=== PATIENT | female | born 1970 | race African-American/Black ===

== ENCOUNTER 2017-03-19 19:36 | Emergency (ER) | payer OTHER ==
[~2017-03-19] VITALS: Ht 157.5 cm; Wt 84.2 kg
[~2017-03-19 19:36] MED LIST: BACTRIM DS1 TAB PO; CEPHALEXIN500 MG PO; DOXYCYCL HYC100 M4 PO; FLEXERIL PO; FLONASE NASAL50 MCG; LORTAB 10 PO; LORTAB 5/3255 MG PO; MEDDOSEPAK PO; METHOCARBAMOL500 MG PO; MOTRIN800 MG/TAB PO; NAPROSYN500 MG PO; NORCO1 TA1 PO; PROVENTIL HFA IN; ROBITUSSIN AC10 ML PO; ULTRAM50 M1 PO; ZPAK PO
[2017-03-19] MEDS ORDERED: MOTRIN200 MG PO (19:59)
[2017-03-19] MEDS ORDERED: ANTIHYPERTENSIVE (20:00)
[2017-03-19] MEDS ORDERED: LOSARTAN POT25 MG PO (20:09)
[2017-03-19] MEDS ORDERED: ATORVASTATIN CA20 MG PO (20:10)
[2017-03-19 20:25] LABS: HEMATOCRIT 36.6 % (37.0-47.0); HEMOGLOBIN 11.7 g/dl (12.0-16.0); IMMATURE GRANULOCYTES 0.3 % (0.0-1.0); MEAN CELL VOLUME 80.8 fL CALC (80.0-100.0); MEAN CORPUSCULAR HGB 25.8 pG CALC (26.0-32.0); NEUT# 5.56 thou/uL (2.00-7.15); RED BLOOD COUNT 4.53 mill/uL (4.20-5.60); RED CELL DISTRI WIDTH 18.6 % (11.5-15.5)
[2017-03-19 20:47] LABS: ALBUMIN 4.2 g/dL (3.2-5.0); ALKALINE PHOSPHATASE 62 u/l (38-126); AMYLASE 55 u/l (30-110); ANION GAP 17 (6-22 (CALC)); BILIRUBIN, TOTAL 0.4 mg/dL (0.0-1.4); BUN 6 mg/dL (7-17); BUN/CREATININE RATIO 9 (12-20 (CALC)); CALCIUM 9.4 mg/dL (8.4-10.2); CARBON DIOXIDE 24 mmol/l (22-30); CHLORIDE 106 mmol/l (95-108); CREATININE 0.7 mg/dL (0.5-1.0); GFR > 60 ML/MIN (>=60 (CALC)); GFR FOR AFR.AMER. > 60 ML/MIN (>=60 (CALC)); GLUCOSE 103 mg/dL (65-105); LIPASE 67 u/l (23-300); POTASSIUM 3.9 mmol/l (3.5-5.1); SGOT/AST 21 u/l (14-36); SGPT/ALT 40 u/l (9-52); SODIUM 143 mmol/l (137-146); TOTAL PROTEIN 7.3 g/dL (6.3-8.2)
[2017-03-19] MEDS ORDERED: AMOXICILLIN500 MG PO (21:05)
[2017-03-19] MEDS ORDERED: LORTAB 10-325 M1 TAB PO (21:05)
[2017-03-19] MEDS ORDERED: ZOFRAN ODT4 MG PO (21:05)
[2017-03-19 21:15] VITALS: BP 129/74
== END 2017-03-19 21:15 | disposition home or self-care (01) | DRG 159 ==
LOC: ED 19:36
PROVIDERS: Emergency Medicine
DX: K08.89 Other specified disorders of teeth and supporting structures (principal); F17.210 Nicotine dependence, cigarettes, uncomplicated; R11.10 Vomiting, unspecified; R50.9 Fever, unspecified; R10.13 Epigastric pain

== ENCOUNTER 2017-07-27 08:22 | Emergency (ER) | payer OTHER ==
[~2017-07-27] VITALS: Ht 157.5 cm; Wt 80.0 kg
[~2017-07-27 08:22] MED LIST changes: +AMOXICILLIN500 MG PO; +ANTIHYPERTENSIVE; +ATORVASTATIN CA20 MG PO; +LORTAB 10-325 M1 TAB PO; +LOSARTAN POT25 MG PO; +MOTRIN200 MG PO; +ZOFRAN ODT4 MG PO
[2017-07-27 09:48] LABS: URINE BILIRUBIN - DIPSTICK NEGATIVE (NEGATIVE); URINE BLOOD DIPSTICK NEGATIVE (NEGATIVE); URINE CLARITY CLEAR; URINE GLUCOSE - DIPSTICK NEGATIVE (NEGATIVE); URINE KETONE TRACE mg/dL (NEGATIVE); URINE LEUK ESTERASE TRACE (NEGATIVE); URINE NITRITE - DIPSTICK NEGATIVE (Negative); URINE PROTEIN - DIPSTICK NEGATIVE (NEG-TRACE); URINE SPECIFIC GRAVITY 1.025; URINE UROBILINOGEN - DIPSTICK 0.2 E.U./dL (0.2)
[2017-07-27 09:49] LABS: HEMATOCRIT 38.1 % (37.0-47.0); HEMOGLOBIN 12.2 g/dl (12.0-16.0); IMMATURE GRANULOCYTES 0.3 % (0.0-1.0); MEAN CELL VOLUME 79.9 fL CALC (80.0-100.0); MEAN CORPUSCULAR HGB 25.6 pG CALC (26.0-32.0); NEUT# 4.82 thou/uL (2.00-7.15); RED BLOOD COUNT 4.77 mill/uL (4.20-5.60); RED CELL DISTRI WIDTH 18.7 % (11.5-15.5)
[2017-07-27 09:50] LABS: URINE COLOR DK. YELLOW
[2017-07-27 09:56] LABS: ALBUMIN 3.9 g/dL (3.2-5.0); ALKALINE PHOSPHATASE 64 u/l (38-126); AMYLASE 58 u/l (30-110); ANION GAP 14 (6-22 (CALC)); BILIRUBIN, TOTAL 0.4 mg/dL (0.0-1.4); BUN 5 mg/dL (7-17); BUN/CREATININE RATIO 8 (12-20 (CALC)); CALCIUM 9.3 mg/dL (8.4-10.2); CARBON DIOXIDE 22 mmol/l (22-30); CHLORIDE 110 mmol/l (95-108); CREATININE 0.6 mg/dL (0.5-1.0); GFR > 60 ML/MIN (>=60 (CALC)); GFR FOR AFR.AMER. > 60 ML/MIN (>=60 (CALC)); GLUCOSE 98 mg/dL (65-105); LIPASE 62 u/l (23-300); POTASSIUM 3.9 mmol/l (3.5-5.1); SGOT/AST 15 u/l (14-36); SGPT/ALT 27 u/l (9-52); SODIUM 142 mmol/l (137-146); TOTAL PROTEIN 7.1 g/dL (6.3-8.2)
[2017-07-27] MEDS ORDERED: ZOFRAN4 M1 PO (11:58)
[2017-07-27 12:07] VITALS: BP 130/92
== END 2017-07-27 12:17 | disposition home or self-care (01) | DRG 392 ==
LOC: ED 08:22
PROVIDERS: Family Medicine
DX: R10.13 Epigastric pain (principal); R11.10 Vomiting, unspecified; F17.210 Nicotine dependence, cigarettes, uncomplicated

== ENCOUNTER 2017-09-11 20:44 | Emergency (ER) | payer OTHER ==
[~2017-09-11] VITALS: Ht 157.5 cm; Wt 83.2 kg
[~2017-09-11 20:44] MED LIST changes: +ZOFRAN4 M1 PO
[2017-09-11 21:47] LABS: HEMATOCRIT 37.5 % (37.0-47.0); HEMOGLOBIN 12.2 g/dl (12.0-16.0); IMMATURE GRANULOCYTES 0.6 % (0.0-1.0); MEAN CELL VOLUME 79.6 fL CALC (80.0-100.0); MEAN CORPUSCULAR HGB 25.9 pG CALC (26.0-32.0); MEAN CORPUSCULAR HGB CONC 32.5 g/L CALC (32.0-36.0); NEUT# 5.89 thou/uL (2.00-7.15); RED BLOOD COUNT 4.71 mill/uL (4.20-5.60); RED CELL DISTRI WIDTH 19.2 % (11.5-15.5)
[2017-09-11 22:02] LABS: ALKALINE PHOSPHATASE 60 u/l (38-126); ANION GAP 17 (6-22 (CALC)); BILIRUBIN, TOTAL 0.3 mg/dL (0.0-1.4); BUN 7 mg/dL (7-17); BUN/CREATININE RATIO 10 (12-20 (CALC)); CALCIUM 9.2 mg/dL (8.4-10.2); CARBON DIOXIDE 20 mmol/l (22-30); CHLORIDE 110 mmol/l (95-108); CREATININE 0.7 mg/dL (0.5-1.0); GFR > 60 ML/MIN (>=60 (CALC)); GFR FOR AFR.AMER. > 60 ML/MIN (>=60 (CALC)); GLUCOSE 110 mg/dL (65-105); POTASSIUM 3.9 mmol/l (3.5-5.1); SGOT/AST 15 u/l (14-36); SGPT/ALT 33 u/l (9-52); SODIUM 143 mmol/l (137-146); TOTAL PROTEIN 7.1 g/dL (6.3-8.2)
[2017-09-11 23:49] VITALS: BP 138/76
== END 2017-09-11 23:50 | disposition home or self-care (01) | DRG 103 ==
LOC: ED 20:44
PROVIDERS: Emergency Medicine
DX: R51 Headache (principal)

== ENCOUNTER 2017-11-09 04:31 | Emergency (ER) | payer OTHER ==
[~2017-11-09] VITALS: Ht 157.5 cm; Wt 78.8 kg
[2017-11-09] MEDS ORDERED: PROVENTIL (04:56)
[2017-11-09 05:50] LABS: INFLUENZA A NONE DETECTED (NONE DETECT); INFLUENZA B NONE DETECTED (NONE DETECT)
--- NOTE | 2017-11-09 05:51 | NUR ---
BREATHING TREATMENT GIVEN. BREATHING TECH. FOR GOOD DEPOSITION TO THE LUNGS.
[2017-11-09] MEDS ORDERED: KEFLEX500 M1 PO (05:58)
[2017-11-09] MEDS ORDERED: ROBITUSSIN AC10 ML PO (05:58)
[2017-11-09 06:05] VITALS: BP 135/76
== END 2017-11-09 06:08 | disposition home or self-care (01) | DRG 153 ==
LOC: ED 04:31
PROVIDERS: Emergency Medicine
DX: J06.9 Acute upper respiratory infection, unspecified (principal); I10 Essential (primary) hypertension; F17.210 Nicotine dependence, cigarettes, uncomplicated; R05 Cough; R50.9 Fever, unspecified

== ENCOUNTER 2018-09-11 04:32 | Emergency (ER) | payer OTHER ==
[~2018-09-11] VITALS: Ht 157.5 cm; Wt 79.0 kg
[~2018-09-11 04:32] MED LIST changes: +KEFLEX500 M1 PO; +PROVENTIL
[2018-09-11 05:15] LABS: HEMATOCRIT 42.5 % (37.0-47.0); HEMOGLOBIN 14.1 g/dl (12.0-16.0); IMMATURE GRANULOCYTES 0.6 % (0.0-5.0); MEAN CELL VOLUME 80.5 fL CALC (80.0-100.0); MEAN CORPUSCULAR HGB 26.7 pG CALC (26.0-32.0); MEAN CORPUSCULAR HGB CONC 33.2 g/L CALC (32.0-36.0); NEUT# 5.3 thou/uL (2.00-7.15); RED BLOOD COUNT 5.28 mill/uL (4.20-5.60); RED CELL DISTRI WIDTH 17.4 % (11.5-15.5)
--- NOTE | 2018-09-11 05:20 | NUR ---
BREATHING TREATMENT GIVEN USING A MOUTH PEICE. BREATHING TECH. FOR GOOD DEPOSITION TO THE LUNGS.
[2018-09-11] MEDS ORDERED: TESSALON PER100 MG PO (06:06)
[2018-09-11 06:21] VITALS: BP 120/66
== END 2018-09-11 06:28 | disposition home or self-care (01) ==
LOC: ED 04:32
PROVIDERS: Family Medicine
DX: J06.9 Acute upper respiratory infection, unspecified (principal); J40 Bronchitis, not specified as acute or chronic; F17.200 Nicotine dependence, unspecified, uncomplicated; R05 Cough; R11.10 Vomiting, unspecified; R09.81 Nasal congestion

== ENCOUNTER 2019-09-28 06:14 | Emergency (ER) | payer SELFPAY ==
[~2019-09-28] VITALS: Ht 157.5 cm; Wt 75.4 kg
[~2019-09-28 06:14] MED LIST changes: +TESSALON PER100 MG PO
[2019-09-28 07:35] LABS: HEMATOCRIT 37.2 % (37.0-47.0); HEMOGLOBIN 12.3 g/dl (12.0-16.0); IMMATURE GRANULOCYTES 0.7 % (0.0-5.0); MEAN CELL VOLUME 85.3 fL CALC (80.0-100.0); MEAN CORPUSCULAR HGB 28.2 pG CALC (26.0-32.0); MEAN CORPUSCULAR HGB CONC 33.1 g/L CALC (32.0-36.0); NEUT# 5.25 thou/uL (2.00-7.15); RED BLOOD COUNT 4.36 mill/uL (4.20-5.60); RED CELL DISTRI WIDTH 16.3 % (11.5-15.5)
[2019-09-28 07:52] LABS: ALBUMIN 4.2 g/dL (3.2-5.0); ALKALINE PHOSPHATASE 52 u/l (38-126); BILIRUBIN, TOTAL 0.4 mg/dL (0.0-1.4); BUN 6 mg/dL (7-17); BUN/CREATININE RATIO 9 (12-20 (CALC)); CARBON DIOXIDE 23 mmol/l (22-30); CHLORIDE 101 mmol/l (95-108); CREATININE 0.6 mg/dL (0.5-1.0); GFR > 60 ML/MIN (>=60 (CALC)); GFR FOR AFR.AMER. > 60 ML/MIN (>=60 (CALC)); SGOT/AST 26 u/l (14-36); TOTAL PROTEIN 7.4 g/dL (6.3-8.2)
[2019-09-28 07:57] LABS: ANION GAP 16 (6-22 (CALC)); POTASSIUM 4.9 mmol/l (3.5-5.1); SODIUM 135 mmol/l (137-146)
[2019-09-28 08:02] LABS: URINE BILIRUBIN - DIPSTICK NEGATIVE (NEGATIVE); URINE BLOOD DIPSTICK NEGATIVE (NEGATIVE); URINE COLOR YELLOW; URINE GLUCOSE - DIPSTICK NEGATIVE (NEGATIVE); URINE KETONE NEGATIVE (NEGATIVE); URINE LEUK ESTERASE NEGATIVE (NEGATIVE); URINE NITRITE - DIPSTICK NEGATIVE (Negative); URINE PH 7.5 (4.5-8.0); URINE PROTEIN - DIPSTICK NEGATIVE (NEG-TRACE); URINE UROBILINOGEN - DIPSTICK 0.2 E.U./dL (0.2)
[2019-09-28] MEDS ORDERED: CHERATUSSIN PO (08:55)
[2019-09-28] MEDS ORDERED: PROAIR HFA108 MCG/AC PO (08:55)
[2019-09-28 09:34] VITALS: BP 119/57
== END 2019-09-28 09:34 | disposition home or self-care (01) | DRG 153 ==
LOC: ED 06:14
DX: J06.9 Acute upper respiratory infection, unspecified (principal); R07.9 Chest pain, unspecified; I10 Essential (primary) hypertension; F17.200 Nicotine dependence, unspecified, uncomplicated

== ENCOUNTER 2019-12-19 16:55 | Emergency (ER) | payer SELFPAY ==
[~2019-12-19 16:55] MED LIST changes: +CHERATUSSIN PO; +PROAIR HFA108 MCG/AC PO
[2019-12-19] MEDS ORDERED: TESSALON PERLE100 MG PO ×2 (19:22)
[2019-12-19 19:28] VITALS: BP 119/79
== END 2019-12-19 19:28 | disposition home or self-care (01) | DRG 204 ==
LOC: ED 16:55
DX: R05 Cough (principal); I10 Essential (primary) hypertension; F17.290 Nicotine dependence, other tobacco product, uncomplicated

== ENCOUNTER 2020-06-13 13:23 | Emergency (ER) | payer SELFPAY ==
[~2020-06-13] VITALS: Ht 157.5 cm; Wt 74.5 kg
[~2020-06-13 13:23] MED LIST changes: +TESSALON PERLE100 MG PO
[2020-06-13 13:52] LABS: HEMOGLOBIN 11.2 g/dl (12.0-16.0); IMMATURE GRANULOCYTES 0.4 % (0.0-5.0); MEAN CELL VOLUME 84.7 fL CALC (80.0-100.0); MEAN CORPUSCULAR HGB 26.4 pG CALC (26.0-32.0); MEAN CORPUSCULAR HGB CONC 31.1 g/dL CAL (32.0-36.0); NEUT# 4.13 thou/uL (2.00-7.15); RED BLOOD COUNT 4.25 mill/uL (4.20-5.60); RED CELL DISTRI WIDTH 16.6 % (11.5-15.5)
[2020-06-13 14:05] LABS: ALBUMIN 4.3 g/dL (3.2-5.0); ALKALINE PHOSPHATASE 51 u/l (38-126); ANION GAP 13 (6-22 (CALC)); BILIRUBIN, TOTAL 0.5 mg/dL (0.0-1.4); BUN 4 mg/dL (7-17); BUN/CREATININE RATIO 6 (12-20 (CALC)); CARBON DIOXIDE 22 mmol/l (22-30); CHLORIDE 106 mmol/l (95-108); CREATININE 0.6 mg/dL (0.5-1.0); GFR > 60 ML/MIN (>=60 (CALC)); GFR FOR AFR.AMER. > 60 ML/MIN (>=60 (CALC)); POTASSIUM 3.8 mmol/l (3.5-5.1); SGOT/AST 21 u/l (14-36); SODIUM 137 mmol/l (137-146); TOTAL PROTEIN 7.3 g/dL (6.3-8.2)
[2020-06-13 15:00] VITALS: BP 115/75
== END 2020-06-13 15:19 | disposition home or self-care (01) | DRG 556 ==
LOC: ED 13:23
DX: M25.562 Pain in left knee (principal); I10 Essential (primary) hypertension; F17.210 Nicotine dependence, cigarettes, uncomplicated

== ENCOUNTER 2021-01-26 | Emergency (ER) | payer OTHER ==
[2021-01-26 20:54] LABS: HEMOGLOBIN 12.8 g/dl (12.0-16.0); IMMATURE GRANULOCYTES 0.4 % (0.0-5.0); MEAN CORPUSCULAR HGB 26.9 pG CALC (26.0-32.0); NEUT# 3.46 thou/uL (2.00-7.15); RED BLOOD COUNT 4.76 mill/uL (4.20-5.60); RED CELL DISTRI WIDTH 17.2 % (11.5-15.5)
[2021-01-26 21:17] LABS: ALBUMIN 4.6 g/dL (3.2-5.0); ALKALINE PHOSPHATASE 55 u/l (38-126); ANION GAP 9 (6-22 (CALC)); BILIRUBIN, TOTAL 0.6 mg/dL (0.0-1.4); BUN 4 mg/dL (7-17); BUN/CREATININE RATIO 7 (12-20 (CALC)); CHLORIDE 103 mmol/l (95-108); CREATININE 0.6 mg/dL (0.5-1.0); GFR > 60 ML/MIN (>=60 (CALC)); GFR FOR AFR.AMER. > 60 ML/MIN (>=60 (CALC)); POTASSIUM 3.9 mmol/l (3.5-5.1); SGOT/AST 29 u/l (14-36); SODIUM 136 mmol/l (137-146)
[2021-01-26 21:18] LABS: CARBON DIOXIDE 28 mmol/l (22-30)
[2021-01-26 22:05] LABS: URINE BILIRUBIN - DIPSTICK NEGATIVE (NEGATIVE); URINE BLOOD DIPSTICK NEGATIVE (NEGATIVE); URINE COLOR YELLOW; URINE GLUCOSE - DIPSTICK NEGATIVE (NEGATIVE); URINE KETONE NEGATIVE (NEGATIVE); URINE LEUK ESTERASE NEGATIVE (NEGATIVE); URINE PROTEIN - DIPSTICK NEGATIVE (NEG-TRACE); URINE UROBILINOGEN - DIPSTICK 0.2 E.U./dL (0.2)
[2021-01-26 22:15] LABS: URINE NITRITE - DIPSTICK NEGATIVE (Negative)
[2021-01-26] MEDS ORDERED: LOMOTIL2.5 MG PO (22:32)
== END 2021-01-26 23:05 | disposition home or self-care (01) | DRG 392 ==
PROVIDERS: Family Medicine
DX: A08.4 Viral intestinal infection, unspecified (principal); B30.9 Viral conjunctivitis, unspecified; I10 Essential (primary) hypertension; F17.210 Nicotine dependence, cigarettes, uncomplicated; Z20.822 Contact with and (suspected) exposure to COVID-19

== ENCOUNTER 2021-09-04 23:47 | Emergency (ER) | payer OTHER ==
[~2021-09-04 23:47] MED LIST changes: +LOMOTIL2.5 MG PO
== END 2021-09-05 00:31 | disposition left against medical advice (07) | DRG 951 ==
LOC: ED 23:47 → LWOBS 09-05 00:30
DX: Z53.21 Procedure and treatment not carried out due to patient leaving prior to being seen by health care provider (principal)

== ENCOUNTER 2022-04-03 20:28 | Emergency (ER) | payer SELFPAY ==
[~2022-04-03] VITALS: Ht 157.5 cm; Wt 77.2 kg
[2022-04-03] VITALS (7 sets, daily range): BP systolic 109–134; BP diastolic 80–91
[2022-04-03 21:15] LABS: HEMATOCRIT 44.7 % (37.0-47.0); HEMOGLOBIN 14.6 g/dl (12.0-16.0); IMMATURE GRANULOCYTES 0.4 % (0.0-5.0); MEAN CELL VOLUME 87.5 fL CALC (80.0-100.0); MEAN CORPUSCULAR HGB 28.6 pG CALC (26.0-32.0); MEAN CORPUSCULAR HGB CONC 32.7 g/dL CAL (32.0-36.0); NEUT# 8.68 thou/uL (2.00-7.15); RED BLOOD COUNT 5.11 mill/uL (4.20-5.60); RED CELL DISTRI WIDTH 16.1 % (11.5-15.5)
[2022-04-03 21:23] LABS: HCG SERUM/URINE (NEG/POS) NEGATIVE (NEGATIVE)
[2022-04-03] MEDS ORDERED: AMOXICILLIN500 MG PO (21:56)
== END 2022-04-03 22:08 | disposition home or self-care (01) | DRG 153 ==
LOC: ED 20:28
PROVIDERS: Family Medicine
DX: J02.0 Streptococcal pharyngitis (principal); I10 Essential (primary) hypertension; F17.290 Nicotine dependence, other tobacco product, uncomplicated; Z20.822 Contact with and (suspected) exposure to COVID-19

== ENCOUNTER 2023-04-15 09:54 | Emergency (ER) | payer SELFPAY ==
[~2023-04-15] VITALS: Ht 157.5 cm; Wt 81.6 kg
[2023-04-15 10:08] VITALS: BP 125/76
[2023-04-15 10:34] LABS: BASO% 0.4 % (0-3); EOS% 1.9 % (0-8); HEMATOCRIT 44.2 % (37.0-47.0); HEMOGLOBIN 13.9 g/dl (12.0-16.0); IMMATURE GRANULOCYTES 0.1 % (0.0-5.0); LYMPH% 35.2 % (15-41); MEAN CELL VOLUME 87.7 fL CALC (80.0-100.0); MEAN CORPUSCULAR HGB 27.6 pG CALC (26.0-32.0); MEAN CORPUSCULAR HGB CONC 31.4 g/dL CAL (32.0-36.0); NEUT# 4.19 thou/uL (2.00-7.15); NEUT% 53.4 % (42-76); RED BLOOD COUNT 5.04 mill/uL (4.20-5.60); RED CELL DISTRI WIDTH 15.8 % (11.5-15.5)
[2023-04-15 10:46] LABS: ALBUMIN 4.1 g/dL (3.2-5.0); ALKALINE PHOSPHATASE 64 u/l (38-126); ANION GAP 13 (6-22 (CALC)); BILIRUBIN, TOTAL 0.5 mg/dL (0.02-1.3); BUN 5 mg/dL (7-17); BUN/CREATININE RATIO 7 (12-20 (CALC)); CARBON DIOXIDE 23 mmol/l (22-30); CHLORIDE 107 mmol/l (95-108); CREATININE 0.7 mg/dL (0.5-1.0); GFR FOR AFR.AMER. > 60 ML/MIN (>=60 (CALC)); GFR OTHER RACES > 60 ML/MIN (>=60 (CALC)); POTASSIUM 4.2 mmol/l (3.5-5.1); SGOT/AST 26 u/l (14-36); SODIUM 138 mmol/l (137-146)
[2023-04-15 11:51] VITALS: BP 125/70
[2023-04-15 12:00] VITALS: BP 129/83
[2023-04-15 12:09] LABS: URINE BILIRUBIN - DIPSTICK NEGATIVE (NEGATIVE); URINE BLOOD DIPSTICK SMALL (NEGATIVE); URINE COLOR YELLOW; URINE GLUCOSE - DIPSTICK NEGATIVE (NEGATIVE); URINE KETONE TRACE mg/dL (NEGATIVE); URINE PROTEIN - DIPSTICK NEGATIVE (NEG-TRACE); URINE UROBILINOGEN - DIPSTICK 0.2 E.U./dL (0.2)
[2023-04-15 12:10] LABS: URINE LEUK ESTERASE MODERATE (NEGATIVE); URINE NITRITE - DIPSTICK POSITIVE (Negative)
[2023-04-15 12:11] LABS: URINE BACTERIA MANY hpf; URINE EPITHELIAL CELLS MODERATE EPI/hpf (0-FEW)
[2023-04-15 13:17] VITALS: BP 125/74
[2023-04-15 13:28] VITALS: BP 125/74
== END 2023-04-15 13:30 | disposition home or self-care (01) | DRG 103 ==
LOC: ED 09:54
PROVIDERS: Family Medicine
DX: R51.9 Headache, unspecified (principal); R82.71 Bacteriuria; I10 Essential (primary) hypertension; F17.200 Nicotine dependence, unspecified, uncomplicated

== ENCOUNTER 2023-11-03 20:56 | Emergency (ER) | payer SELFPAY ==
[~2023-11-03] VITALS: Ht 157.5 cm; Wt 75.0 kg
[2023-11-03 21:00] VITALS: BP 136/94
== END 2023-11-03 22:20 | disposition left against medical advice (07) | DRG 951 ==
LOC: ED 20:56 → LWOBS 22:20 → ED 22:20
DX: Z53.21 Procedure and treatment not carried out due to patient leaving prior to being seen by health care provider (principal); Z11.52 Encounter for screening for COVID-19

== ENCOUNTER 2024-08-29 13:51 | Emergency (ER) | payer OTHER ==
[~2024-08-29] VITALS: Ht 157.5 cm; Wt 79.3 kg
[2024-08-29 14:02] VITALS: BP 143/92
[2024-08-29] MEDS ORDERED: IBUPROFEN 800 MG/TAB PO ONE (14:25)
[2024-08-29] MEDS ORDERED: GUAIFENESIN 200 MG/10 ML UDC PO ONE (14:25)
[2024-08-29 14:31] VITALS: BP 148/90
[2024-08-29 15:22] VITALS: BP 148/90
== END 2024-08-29 15:28 | disposition home or self-care (01) | DRG 866 ==
LOC: ED 13:51
DX: B34.9 Viral infection, unspecified (principal); I10 Essential (primary) hypertension; Z20.822 Contact with and (suspected) exposure to COVID-19

== ENCOUNTER 2024-10-06 02:26 | Emergency (ER) | payer OTHER ==
[~2024-10-06] VITALS: Ht 157.5 cm; Wt 84.0 kg
[2024-10-06 02:47] VITALS: BP 148/92
[2024-10-06] MEDS ORDERED: BENZONATATE 200 MG/CAP PO ONE (02:55)
[2024-10-06] MEDS ORDERED: oxyCODONE 5MG/ ACETAMINOPHEN 325MG TAB PO ONE (02:55)
[2024-10-06 03:00] VITALS: BP 145/74
[2024-10-06] MEDS ORDERED: DEXAMETHASONE SOD. PHOSPHATE 10 MG/ML VIAL IM ONE (04:10)
[2024-10-06] MEDS ORDERED: KETOROLAC TROMETHAMINE 30 MG/ML SDV IM ONE (04:10)
[2024-10-06 04:21] VITALS: BP 162/92
[2024-10-06] MEDS ORDERED: EXCEDRIN PO (04:25)
[2024-10-06 04:43] VITALS: BP 143/87
[2024-10-06 04:51] VITALS: BP 143/87
== END 2024-10-06 05:00 | disposition home or self-care (01) | DRG 103 ==
LOC: ED 02:26
DX: R51.9 Headache, unspecified (principal); B34.9 Viral infection, unspecified
CPT/HCPCS: J1100